=== PATIENT | male | born 1990 | race Caucasian/White ===

== ENCOUNTER 2017-12-13 16:23 | Emergency (ER) | payer MEDICAID, OTHER | END 2017-12-13 19:12 | disposition home or self-care (01) | LOC: FTE 16:23 | DX: L03.116 Cellulitis of left lower limb (principal); L02.612 Cutaneous abscess of left foot; F17.210 Nicotine dependence, cigarettes, uncomplicated | CPT/HCPCS: 99284; Z7502 ==